=== PATIENT | female | born 1970 | race Hispanic/Latino ===

== ENCOUNTER 2017-08-19 15:32 | Emergency (ER) | payer BC ==
[~2017-08-19] VITALS: Ht 154.9 cm; Wt 57.2 kg
--- OUTSIDE RECORDS SUMMARY | 2017-08-19 15:36 | XMS REPORT | Clinical Summary ---
Author Author [facility] Organization [facility] Address Unknown Phone Unavailable Care Team Providers Care Phys Assistant Name Role Phone Mario Alberto Borges MD PCP Allergies No Known Allergies Current Medications Prescription Sig. Disp. Refills Start End Date Status Date celecoxib (CeleBREX) 200 Take 1 capsule (200 mg 30 capsule 0 03/11/20 02/01/20 Discontin MG capsuleIndications: total) by mouth daily. 16 17 ued Radial tunnel syndrome, right traZODone (DESYREL) 100 Take 100 mg by mouth 02/01/20 Discontin MG tablet nightly. 17 ued chlordiazePOXIDE Take 1 capsule (25 mg 12 capsule 0 02/01/20 (LIBRIUM) 25 MG capsule total) by mouth every 6 17 17 (six) hours for 3 days. sucralfate (CARAFATE) 1 Take 1 tablet (1 g total) 120 tablet 0 03/02/20 gram tablet by mouth 4 (four) times a 17 17 day before meals and nightly for 30 days. clonAZEPAM (KlonoPIN) 1 Take 1 tablet (1 mg 3 tablet 0 02/01/20 MG tablet total) by mouth nightly 17 17 for 3 days. pantoprazole (PROTONIX) Take 1 tablet (40 mg 30 tablet 0 02/01/20 40 MG EC tablet total) by mouth daily for 17 17 30 days. escitalopram (LEXAPRO) 10 Take 1 tablet (10 mg 30 tablet 0 02/01/20 03/02/20 MG tablet total) by mouth daily for 17 17 30 days. Active Problems Problem Noted Date Dehydration 01/29/2017 Right arm pain 07/03/2016 Pain aggravated by physical activity 07/03/2016 Left arm pain 06/03/2016 Neck pain Encounters Date Type Specialty Care Team Description 01/29/2017 [facility] Medicine Gene Borges MD Dehydration (Primary Dx) - Encounter 01/31/2017 01/29/2017 Orders Only General Internal Medicine Gene Borges MD Dehydration (Primary Dx) after 08/18/2016 Family History Medical History Relation Name Comments Cancer Maternal Tracy Harper Grandmother Nasir Relation Name Status Comments Maternal Grandmother Tracy Best Social History Tobacco Use Types Packs/Day Years Used Date Never Smoker Smokeless Tobacco: Never Used Sex Assigned at Date Recorded Not on file Last Filed Vital Signs Vital Sign Reading Time Taken Blood Pressure 128/92 01/31/2017 3:53 AM CDT Pulse 75 01/31/2017 3:53 AM CDT Temperature 36.7 C (98 F) 01/31/2017 3:53 AM CDT Respiratory Rate 18 01/31/2017 3:53 AM CDT Oxygen Saturation 99% 01/31/2017 3:53 AM CDT Inhaled Oxygen - - Concentration Weight - - Height - - Body Mass Index - - Plan of Treatment Date Type Specialty Care Team Description 09/09/2017 Office Visit Obstetrics and Gynecology Ana Maria De La Cruz MD [address] [place] [phone] Health Maintenance Due Date Last Done Comments PAP SMEAR 1992 INFLUENZA VACCINE 02/11/2017 Results * CBC with platelet and differential (01/30/2017 6:28 AM) Only the most recent of 2 results within the time period is included. Component Value Ref Range WBC 4.65 4.50 - 11.00 k/uL RBC 3.70 (L) 4.20 - 5.50 m/uL HGB 11.8 (L) 12.0 - 16.0 g/dL HCT 36.0 (L) 37.0 - 47.0 % MCV 97.3 82.0 - 100.0 fL MCH 31.9 27.0 - 34.0 pg MCHC 32.8 31.0 - 37.0 g/dL RDW - SD 42.2 37.0 - 55.0 fL MPV 10.4 8.8 - 13.2 fL Platelet count 180 150 - 400 k/uL Nucleated RBC 0.00 /100 WBC Neutrophils 50.6 39.0 - 69.0 % Lymphocytes 37.6 25.0 - 45.0 % Monocytes 8.2 0.0 - 10.0 % Eosinophils 2.8 0.0 - 5.0 % Basophils 0.6 0.0 - 1.0 % Immature granulocytes 0.2Comment: "Immature granulocytes" 0.0 - 1.0 % (promyelocytes, myelocytes, metamyelocytes) Specimen Performing Laboratory Blood [facility] DEPARTMENT OF PATHOLOGY AND GENOMIC MEDICINE [address] [place] [id number] * Urinalysis screen and microscopy, with reflex to culture (01/29/2017 3:00 PM) Component Value Ref Range Specimen site Clean catch Color, UA Straw Appearance, UA Hazy Specific gravity, UA 1.018 1.001 - 1.035 pH, UA 7.0 5.0 - 8.5 Protein, UA Negative Negative Glucose, UA Negative Negative Ketones, UA 1+ (A) Negative Bilirubin, UA Negative Negative Blood, UA Small (A) Negative Nitrite, UA Negative Negative Urobilinogen, UA <2.0 <2.0 Leukocyte esterase, UA Negative Negative Epithelial cells, UA 2 /HPF WBC, UA <1 0 - 4 /HPF RBC, UA 4 (H) 0 - 2 /HPF Bacteria, UA Few None seen Yeast, UA None seen Yeast with pseudohyphae, None seen UA Specimen Performing Laboratory Urine [facility] DEPARTMENT OF PATHOLOGY AND GENOMIC MEDICINE [address] [place] [id number] * Urine drugs of abuse screen (01/29/2017 3:00 PM) Component Value Ref Range Amphetamine screen, urine Negative Barbiturate screen, urine Negative Benzodiazepine screen, Negative urine Cannabinoid screen, urine Negative Cocaine screen, urine Negative Methadone metabolite Negative (EDDP), urine Opiates screen, urine Negative Oxycodone screen, urine Negative Phencyclidine screen, Negative urine Tricyclic screen, urine Negative Comment: Drug screen minimum concentration of detectability Amphetamines 1000 ng/mL Barbiturates 200 ng/mL Benzodiazepines 300 ng/mL Cocaine 300 ng/mL Methadone 3 00 ng/mL Opiates 300 ng/mL Oxycodone 3 00 ng/mL Phencyclidine 25 ng/mL Cannabinoids 50 ng/mL Tricyclics 1000 ng/mL Negative test results indicates presumptive evidence of lack of clinically significant drug concentration in this urine specimen. Positive test results are presumptive evidence of clinically significant drug concentration in this urine specimen. Testing performed for medical purposes only. Specimen Performing Laboratory Urine [facility] DEPARTMENT OF PATHOLOGY AND [address] [id number] * Urine culture (01/29/2017 3:00 PM) Component Value Ref Range Urine culture SEE COMMENTComment: Bacteriuria screen negative. Specimen Performing Laboratory [facility] DEPARTMENT OF PATHOLOGY AND [address] [id number] * Estimated GFR (01/29/2017 2:20 PM) Component Value Ref Range GFR Non Af Amer >90 mL/min/1.73 m2 GFR Af Amer >90 mL/min/1.73 m2 Comment: Chronic kidney disease: <60 mL/min/1.73m2 Kidney failure: <15 mL/min/1.73m2 The estimated GFR is calculated from the IDMS-traceable Modification of Diet in Renal Disease Equation. The accuracy of the calculation is poor when the creatinine is normal. Calculated values >90 mL/min/1.73m2 are not reported. This equation has not been validated in children (<18 years), women, the elderly (>70 years), or ethnic groups other than Caucasians and Americans. Specimen Performing Laboratory Plasma specimen [facility] DEPARTMENT OF PATHOLOGY AND [address] [address] * Partial thromboplastin time, activated (01/29/2017 2:20 PM) Component Value Ref Range PTT 28.7 23.0 - 36.0 sec Comment: PTT therapeutic range for unfractionated heparin is 61.0-112.0 seconds which corresponds to Anti-Xa 0.3-0.7 U/ml. Specimen Performing Laboratory Blood [facility] DEPARTMENT OF PATHOLOGY AND [facility] MEDICINE [address] [place] [phone] * Prothrombin time with INR (01/29/2017 2:20 PM) Component Value Ref Range Prothrombin time 12.8 12.0 - 15.0 sec INR 1.0 Comment: The International Normalized Ratio (INR) is a therapeutic monitoring tool for patients who are stable on oral anticoagulant therapy. An INR of 2.0-3.0 is suggested for deep vein thrombosis/pulmonary embolism. Specimen Performing Laboratory Blood [facility] DEPARTMENT OF PATHOLOGY AND [facility] MEDICINE [address] [place] [phone] * Thyroid stimulating hormone (01/29/2017 2:20 PM) Component Value Ref Range TSH 1.64 0.27 - 4.20 uIU/mL Specimen Performing Laboratory Plasma specimen [facility] DEPARTMENT OF PATHOLOGY AND GENOMIC MEDICINE [address] [place] [id number] * Alcohol level, blood (01/29/2017 2:20 PM) Component Value Ref Range Alcohol None Detected mg/dL Comment: Normal None Detected Legal Intoxication in [place] 80 mg/dL (0.08%) - Whole Blood Toxic Concentration 200 mg/dL (0.2%) Potentially Fatal 350 - 500 mg/dL (0.35 - 0.5%) Alcohol percent None Detected % Specimen Performing Laboratory Plasma specimen [facility] DEPARTMENT OF PATHOLOGY AND GENOMIC MEDICINE [address] [place] [phone] * Comprehensive metabolic panel (01/29/2017 2:20 PM) Component Value Ref Range Sodium 138 135 - 148 mEq/L Potassium 4.1 3.5 - 5.0 mEq/L Chloride 100 98 - 112 mEq/L CO2 23 (L) 24 - 31 mEq/L Anion gap 15 7 - 15 mEq/L Comment: Starting from October , anion gap calculation no longer incorporates potassium. Please note the change. BUN 13 6 - 20 mg/dL Creatinine 0.7 0.5 - 0.9 mg/dL Glucose 79 65 - 99 mg/dL Calcium 8.2 (L) 8.3 - 10.2 mg/dL Protein 6.7 6.3 - 8.3 g/dL Comment: 4.6-7.0 g/dL 1 week 4.4-7.6 g/dL 7 months-1year 5.1-7.3 g/dL 1-2 years 5.6-7.5 g/dL >3 years 6.0-8.0 g/dL 18-150 6.3-8.3 g/dL Albumin 3.7 3.5 - 5.0 g/dL A/G ratio 1.2 0.7 - 3.8 Alkaline phosphatase 70 35 - 104 U/L AST 29 10 - 35 U/L ALT 12 5 - 50 U/L Total bilirubin 0.9 0.0 - 1.2 mg/dL Specimen Performing Laboratory Plasma specimen [facility] DEPARTMENT OF PATHOLOGY AND GENOMIC MEDICINE [address] [place] [id number] after 08/18/2016 Insurance Payer Benefit Subscriber ID Type Phone Address Plan / Group BCBS [id number] PPO [id number] PPO/[employer] [place] PPO Home:
[2017-08-19] MEDS ORDERED: PREDNISONE 5 MG TAB ONE (15:57)
[2017-08-19] MEDS ORDERED: FAMOTIDINE 20 MG TAB ONE (15:57)
[2017-08-19] MEDS ORDERED: DIPHENHYDRAMINE HCL 25 MG CAP ONE (15:57)
[2017-08-19] MEDS ORDERED: PREDNISONE 20 MG TAB PO ONE (16:00)
[2017-08-19] MEDS ORDERED: FAMOTIDINE 20 MG TAB PO ONE (16:00)
[2017-08-19] MEDS ORDERED: DIPHENHYDRAMINE HCL 25 MG CAP PO ONE (16:00)
== END 2017-08-19 17:05 | disposition home or self-care (01) ==
LOC: ER 15:32
DX: L50.0 Allergic urticaria (principal); Z98.84 Bariatric surgery status
CPT/HCPCS: 99282; J7512